=== PATIENT | male | born 1990 | race Hispanic/Latino ===

== ENCOUNTER 2017-08-19 18:24 | Observation (INO) | payer OTHER ==
[2017-08-19 18:31] VITALS: BP 154/77; PULSE 81; RESP 16; O2SAT 99
[2017-08-19] MEDS ORDERED: Iodixanol 320 MG/ML 100 ML BOTTLE IV ONE ×2 (19:01→20:04)
--- NOTE | 2017-08-19 19:07 | ED PDOC ---
HPI:STROKE - Time Time: 18:43 - Historian Historian: Patient - Chief Complaint Chief Complaint: Confusion, Vision loss, other (headache) - Timing Timing: Improved - Associated Symptoms Associated symptoms:: Headache (diffuse posterior, gradual onset) - Notes: Notes:: Gibson Esparza is a 26 year old male with no past medical history and a past family history of stroke with both maternal and paternal grandfathers, who was brought to the ER by ambulance due to complaints of left sided visual field loss with associated confusion, onset at work around 14:30. Patient reports that these symptoms resolved after 15 minutes, but were replaced with a gradually onset, diffuse posterior headache. He states he has a history of similar headaches, but without any visual changes. Patient was seen at [facility] prior to arrival, who referred him to the ER. He denies any chest pain, shortness of breath, cough , vomiting, or nausea. Patient offers no other medical complaints at this time. PMD: none provided Past Medical History Reviewed: Historical Data, Nursing Documentation, Vital Signs Vital Signs: Last Vital Signs Temp Pulse 81 08/19/17 18:26 Resp 16 08/19/17 18:26 BP 154/77 H 08/19/17 18:26 Pulse Ox 99 08/19/17 18:26 - Medical History PMH: No Chronic Diseases - Surgical History Surgical History: No Surg Hx - Family History Family History: States: Stroke (both granfathers at old age) - Allergies Allergies/Adverse Reactions: Allergies Allergy/AdvReac Type Severity Reaction Status Date / Time No Known Allergies Allergy Verified 08/19/17 18:31 Review of Systems ROS Statement: Except As Marked, All Systems Reviewed And Found Negative Eyes: Positive for: Vision Change (left sided vision loss) Cardiovascular: Negative for: Chest Pain Respiratory: Negative for: Shortness of Breath Gastrointestinal: Negative for: Nausea, Vomiting Neurological: Positive for: Confusion, Headache Physical Exam - Reviewed Nursing Documentation Reviewed: Yes Vital Signs Reviewed: Yes - Physical Exam Appears: Positive for: Non-toxic, No Acute Distress Head Exam: Positive for: ATRAUMATIC, NORMAL INSPECTION, NORMOCEPHALIC Skin: Positive for: Normal Color, Warm, Dry Eye Exam: Positive for: EOMI, Normal appearance, PERRL Neck: Positive for: Normal, Painless ROM, Supple Cardiovascular/Chest: Positive for: Regular Rate, Rhythm. Negative for: Murmur Respiratory: Positive for: Normal Breath Sounds. Negative for: Respiratory Distress Gastrointestinal/Abdominal: Positive for: Normal Exam, Soft. Negative for: Tenderness Back: Positive for: Normal Inspection. Negative for: L CVA Tenderness, R CVA Tenderness, Vertebral Tenderness Extremity: Positive for: Normal ROM. Negative for: Pedal Edema, Deformity, Swelling Neurologic/Psych: Positive for: Alert, Oriented. Negative for: Motor/Sensory Deficits - ECG O2 Sat by Pulse Oximetry: 99 (RA) Pulse Ox Interpretation: Normal Disposition - Disposition
[2017-08-19 19:21] LABS: BASO # 0.1 K/uL (0.0-0.2); BASO % 0.7 % (0.0-2.0); EOS # 0.2 K/uL (0.0-0.7); EOS % 2.8 % (0.0-4.0); HEMOGLOBIN 15.5 g/dL (12.0-18.0); LYMPH # 1.3 K/uL (1.0-4.3); LYMPH % 17.2 % (20.0-40.0); MEAN CELL VOLUME 90.8 fl (80.0-94.0); MEAN CORPUSCULAR HEMOGLOBIN 31.4 pg (27.0-31.0); MEAN CORPUSCULAR HGB CONC 34.5 g/dL (33.0-37.0); MEAN PLATELET VOLUME 11.1 fl (7.2-11.7); MONO # 0.5 K/uL (0.0-0.8); MONO % 6.7 % (0.0-10.0); NEUT # 5.4 K/uL (1.8-7.0); NEUT % 72.6 % (50.0-75.0); NRBC % 0.2 % (0.0-0.0); RBC 4.94 Mil/uL (4.40-5.90); RED CELL DISTRIBUTION WIDTH 12.7 % (11.5-14.5); WHITE BLOOD COUNT 7.4 K/uL (4.8-10.8)
--- NOTE | 2017-08-19 19:22 | CT ---
EXAM: CT Head Without Intravenous Contrast EXAM DATE/TIME: 08/19/2017 6:57 PM CLINICAL HISTORY: 26 years old, male; Signs and symptoms; Visual disturbance; Additional info: Visual loss resolved 14: 50 TECHNIQUE: Axial computed tomography images of the head/brain without intravenous contrast. All CT scans at this facility use one or more dose reduction techniques, viz.: automated exposure control; ma/kV adjustment per patient size (including targeted exams where dose is matched to indication; i.e. head); or iterative reconstruction technique. Coronal and sagittal reformatted images were created and reviewed. COMPARISON: There are no prior studies for comparison. FINDINGS: Brain: Ventricles are normal in size and configuration. There is no midline shift. There are no intra-axial or extra-axial mass lesions or areas of hemorrhage. There are no abnormal fluid collections. Borrego-white differentiation is maintained. Ventricles: See above. Bones: Cranial vault is intact. Soft tissues: unremarkable Ears and mastoids: Middle ears and mastoids are unremarkable Orbits: Orbital contents are unremarkable. IMPRESSION: No acute intracranial abnormality
--- NOTE | 2017-08-19 19:26 | ED PDOC ---
HPI:STROKE - Time Time: 18:43 - Historian Historian: Patient - Chief Complaint Chief Complaint: Confusion, Vision loss - Notes: Notes:: Gibson Esparza is a 26 year old male with no past medical history and a past family history of stroke with both maternal and paternal grandfathers, who was brought to the ER by ambulance due to complaints of left sided visual field loss with associated confusion, onset at work around 14:30. Patient reports that these symptoms resolved after 15 minutes, but were replaced with a gradually onset, diffuse posterior headache. He states he has a history of similar headaches, but without any visual changes. Patient was seen at [facility] prior to arrival, who referred him to the ER. He denies any chest pain, shortness of breath, cough , vomiting, or nausea. Patient offers no other medical complaints at this time. PMD: none provided rTPA Inclusion/Exclusion - Inclusion Criteria for Altepase Patient is 18 years or Older: Yes The Clinical Diagnosis of Ischemic Stroke That is Causing a Potentially Disabling Neurological Deficit: No Time of Onset is Well Established to be Less Than 270 Minute Before Treatment Would Begin: No Risk/Benefit Discussed With Patient/Family Member Present: Yes - Exclusion Criteria for Altepase Uncontrolled Hypertension at Time of Treatment (Systolic BP above 185 or Diastolic BP above 110 mmHg): No Past Medical History Reviewed: Historical Data, Nursing Documentation, Vital Signs Vital Signs: Last Vital Signs Temp Pulse 81 08/19/17 18:26 Resp 16 18 18:26 BP 154/77 H 08/19/17 18:26 Pulse Ox 99 08/19/17 18:26 - Medical History PMH: No Chronic Diseases - Surgical History Surgical History: No Surg Hx - Family History Family History: States: Stroke (both grandfathers at old age) - Allergies Allergies/Adverse Reactions: Allergies Allergy/AdvReac Type Severity Reaction Status Date / Time No Known Allergies Allergy Verified 08/19/17 18:31 Review of Systems ROS Statement: Except As Marked, All Systems Reviewed And Found Negative Eyes: Positive for: Vision Change (left sided vision loss) Cardiovascular: Negative for: Chest Pain Respiratory: Negative for: Cough Gastrointestinal: Negative for: Nausea, Vomiting Neurological: Positive for: Confusion, Headache Physical Exam - Reviewed Nursing Documentation Reviewed: Yes Vital Signs Reviewed: Yes - Physical Exam Appears: Positive for: Non-toxic, No Acute Distress Head Exam: Positive for: ATRAUMATIC, NORMAL INSPECTION, NORMOCEPHALIC Skin: Positive for: Normal Color, Warm, Dry Eye Exam: Positive for: EOMI, Normal appearance, PERRL Neck: Positive for: Normal, Painless ROM, Supple Cardiovascular/Chest: Positive for: Regular Rate, Rhythm. Negative for: Murmur Respiratory: Positive for: Normal Breath Sounds. Negative for: Respiratory Distress Gastrointestinal/Abdominal: Positive for: Normal Exam, Soft. Negative for: Tenderness Back: Positive for: Normal Inspection. Negative for: L CVA Tenderness, R CVA Tenderness, Vertebral Tenderness Extremity: Positive for: Normal ROM. Negative for: Pedal Edema, Deformity, Swelling Neurologic/Psych: Positive for: Alert, Oriented. Negative for: Motor/Sensory Deficits - Laboratory Results Result Diagrams: 08/19/17 19:17 08/19/17 19:17 - ECG ECG Rhythm: Positive for: Normal QRS, Sinus Rhythm (normal). Negative for: Nonspecific Changes (no acute changes) O2 Sat by Pulse Oximetry: 99 (RA) Pulse Ox Interpretation: Normal - Progress ED Course And Treament: HEAD CT: NAD D/W DR. LYNCH. RECOMMENDS CTA NECK/HEAD. ASA 325 MG X 1 DOSE. RECOMMENDS ADMISSION FOR FURTHER INVESTIGATION OF SYMPTOMS. PATIENT DOES NOT WANT TO STAY INPATIENT. REFUSES CTA NECK/HEAD. AMA PAPERWORK OBTAINED. RISKS OF REFUSING STUDIES AND HOSPITAL STAY EXPLAINED TO PATIENT. BENEFITS OF HAVING STUDIES EXPLAINED TO PATIENT. Medical Decision Making Medical Decision Making: Time: 19:08 Initial Plan: --Blood Type and Screen --CT Head --EKG --CMP --Hemoglobin A1C --Lipid panel --Troponin --CBC --Coag --CXR 18:43 Patient was seen and evaluated. 18:[address] Pratt and a code stroke was called. Scribe Attestation: Documented by Cheyenne Verduzco, acting as a scribe for Setu Thomason PA-C. Provider Scribe Attestation: All medical record entries made by the Scribe were at my direction and personally dictated by me. I have reviewed the chart and agree that the record accurately reflects my personal performance of the history, physical exam, medical decision making, and the department course for this patient. I have also personally directed, reviewed, and agree with the discharge instructions and disposition. Disposition - Clinical Impression Clinical Impression: Visual loss - Patient ED Disposition Is Patient to be Admitted: No - Disposition Disposition: Against Medical Advice Disposition Time: 20:45 Condition: FAIR
[2017-08-19 19:36] LABS: ALB/GLOB RATIO 1.3 (1.0-2.1); ALBUMIN 4.6 g/dL (3.5-5.0); ALT/SGPT 37 U/L (21-72); AST/SGOT 33 U/L (17-59); BLOOD UREA NITROGEN 21 mg/dl (9-20); CALCIUM 9.8 mg/dL (8.4-10.2); GFR AFRICAN-AMERICAN > 60; GFR NON-AFRICAN AMERICAN > 60; HDL CHOLESTEROL 82 MG/DL (30-70)
[2017-08-19 19:43] LABS: PARTIAL THROMBOPLASTIN TIME 32.8 Seconds (25.6-37.1); PROTHROMBIN TIME 11.3 Seconds (9.8-13.1)
[2017-08-19 19:46] LABS: LDL CHOLESTEROL 65 mg/dL (0-129)
--- NOTE | 2017-08-20 00:51 | CP.PCM.PCO ---
Physician Communication Note - Physician Communication Note Physician Communication Note: Pretty sign out Against Medical Advice from the ER.
--- NOTE | 2017-08-20 10:49 | RAD ---
HISTORY: Code Stroke COMPARISON: No prior. FINDINGS: LUNGS: No active pulmonary disease. PLEURA: No significant pleural effusion identified, no pneumothorax apparent. CARDIOVASCULAR: Normal. OSSEOUS STRUCTURES: No significant abnormalities. VISUALIZED UPPER ABDOMEN: Normal. OTHER FINDINGS: None. IMPRESSION: No acute cardiopulmonary disease appreciated.
--- NOTE | 2017-08-20 11:02 | CARD ---
APPROVED REPORT EKG Measurement Heart [id number] <Conclusion> Normal sinus rhythm with sinus arrhythmia Normal ECG
== END 2017-08-19 21:07 | disposition left against medical advice (07) ==
LOC: H.ER 18:24 → H.ERHOLD 20:08
PROVIDERS: ADMIT Internal Medicine; ATTEND Internal Medicine
DX: H53.132 Sudden visual loss, left eye (principal); R51 Headache; Z82.3 Family history of stroke
CPT/HCPCS: 70450; 71045; 80053; 80061; 82948; 83036; 84484; 85025; 85610; 85730; 86850; 86900; 93005; 99285; G0378